=== PATIENT | female | born 1945 | race African-American/Black ===

== ENCOUNTER 2016-07-14 18:29 | Inpatient (IN) | payer MEDICARE ==
--- NOTE | ~2016-07-14 | CN ---
Consultation Report [facility] [address] [place]. [address] NAME: YURIDIA HANLEY : 49 STATUS : ADM IN [facility]#: [id number] AGE: 71 ADM/REG DATE : 07/15/16 MR#: [id number] REPORT SERV DATE: 07/18/16 DICTATED BY: LB FERMIN DATE: 07/15/16 REPORT STATUS : Draft TRANSCRIBED BY: BRENT DATE: 07/15/16 DATE OF CONSULTATION: 07/15/2016 REASON FOR CONSULTATION: Preoperative cardiac clearance, lateral T-wave inversions on EKG. HISTORY OF PRESENT ILLNESS: Ms. Hanley is a very pleasant 71-year-old female with a history of stroke/vascular dementia, coronary artery disease, status post four-vessel CABG in 2011 at [place], peripheral vascular disease, status post multiple interventions, and uncontrolled diabetes, who presents to [facility] with severe compression of her cervical cord that is unstable. She is currently awaiting posterior cord decompression per Orthopedic Surgery. However, her EKG from this morning demonstrated lateral T-wave inversions, prompting consultation for evaluation and preoperative cardiac clearance. In speaking with her, as well as her sister, the patient is completely asymptomatic from a cardiac standpoint. She has not had any chest pains, pressures, or palpitations in the recent past or presently. Although she is fairly limited in her ability to complete her ADLs (being in a wheelchair, as well as having bilateral carpal tunnel syndrome), she is able to wheel herself around without any issue in her wheelchair. She wheels herself around regularly and does not have any cardiac symptoms at this time either. ALLERGIES: NONE. PAST MEDICAL HISTORY: As above. SOCIAL HISTORY: The patient lives at home with her son. She functions in a partially dependent fashion. She gets around with a wheelchair. She denies drinking alcohol or doing drugs. She does smoke occasionally. FAMILY HISTORY: Noncontributory for premature cardiac disease. REVIEW OF SYSTEMS: As above, including neck pain. All other systems otherwise negative. PHYSICAL EXAMINATION: VITAL SIGNS: Blood pressure 131/73, pulse 86, temperature 98.2. GENERAL: Cachectic, older than stated age, mild distress, and discomfort from neck pain. NEURO: Awake, alert and oriented x3; no focal deficits, appropriate mood. HEAD AND NECK: Normocephalic atraumatic, C-spine stabilizer in place. LUNGS: Clear to auscultation bilaterally, no wheezes, rales or rhonchi. CV: Regular rhythm, normal S1/S2, no murmurs, rubs or gallops. ABDOMEN: Soft, non-tender, non-distended, no rebound or guarding. EXTREMITIES: Decreased muscle bulk in her lower extremities bilaterally with fungal nail infection noted on her feet bilaterally; otherwise, cool to touch. SKIN: Warm, dry and intact; no rash. PERTINENT TEST FINDINGS: Potassium 4.7; creatinine 1.17; glucose 359. White blood cell Consultation Report [facility] [address] [place]. [address] NAME: YURIDIA HANLEY : 49 STATUS : ADM IN PAT#: [id number] AGE: 71 ADM/REG DATE : 07/15/16 MR#: [id number] REPORT SERV DATE: 07/18/16 DICTATED BY: LB FERMIN DATE: 07/15/16 REPORT STATUS : Draft TRANSCRIBED BY: BRENT DATE: 07/15/16 count 8.6. Troponin less than 0.02. EKGs demonstrate sinus rhythm, normal mean QRS axis, septal Q-waves, lateral T-wave inversions in V4 through V6, stable T-wave inversion in aVL when compared to previous EKG. Most recent EKG shows resolution of T-wave inversions in V4 through V6. IMPRESSION AND PLAN: Ms. Hanley is a 71-year-old female with multiple comorbidities and an extensive cardiovascular history, who is awaiting decompression of a severe and unstable compression of her C-spine cord. We were called for evaluation of lateral T-wave inversions on her EKG that were transient from this morning, as well as preoperative cardiac clearance. In light of the fact that she is entirely asymptomatic from a cardiac standpoint, is able to wheel herself around in her wheelchair (greater than 4 METs), and does not have any decompensated cardiac conditions as far as I am able to discern at this point in time, I do not believe she warrants additional cardiovascular testing at this time. Furthermore, given severe and unstable status of her C-spine/cervical cord, I do not think that we should delay surgical therapy for cardiovascular testing at this time. She is [id number] risk for an intermediate risk surgery with an estimated risk of 2-3% of a perioperative myocardial infarction or cardiac arrest. I have disclosed this to her, and she is amenable with proceeding without further cardiovascular testing. Nevertheless, I do recommend starting a beta-debbie per AHA guidelines (class IIA recommendation). It will be helpful to get an echocardiogram as well, however, again, I do not believe this should hold her up for an operative intervention to decompress her cervical cord. I have conveyed these recommendations directly to Dr. Boykin's physician healthcare administrative assistant at the time of this consultation. ALAINA/BRENT Lb Fermin MD / [id number] CC: Netta Marr M.D.
--- NOTE | ~2016-07-14 | OP ---
Record Of Operation [facility] [address] [place]. 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 PROCEDURE: 1. Posterior cervical laminectomy C2-3, C3-4, C4-5, and C5-6. 2. Posterior cervical arthrodesis C2-3, C3-4, C4-5, and C5-6. 3. Posterior instrumentation C2-C6 (five segments). 4. Use of local autograft, allograft substitute, and bone morphogenic protein. 5. Use of this stereotactic guidance. SURGEON: Riddhi Boykin M.D. FLUIDS: 1600 mL LR. ESTIMATED BLOOD LOSS: 75 mL. DRAIN: One. COMPLICATIONS: None. ANTIBIOTIC: Preoperatively. IMPLANT: Alphatec. PREOPERATIVE HISTORY: This is a very friendly, 71-year-old female, who has a very good support system including family who reports increasing weakness in her upper extremities. She was having greater and greater difficulty feeding herself and was having severe difficulties with dexterity as well as upper extremity proprioception. We discussed the pros and cons of essentially observation and doing nothing. We discussed the natural history of cervical spondylotic myelopathy. We also then discussed the surgical option. She did have some anterior and posterior compression, but overall felt that a posterior laminectomy and the fact that she still did have some reasonable lordosis present that the posterior only procedure should be sufficient. I felt that if she had been severely kyphotic, then we would have also performed a corpectomy and posterior surgery. In an effort to avoid a combined approach, I felt again the posterior surgery alone should be sufficient. I discussed with the family and with her diabetes of course that she would be an increased risk of infection. Fortunately, she had done well with several other surgeries that she had in the last year. Again, we discussed this and she also obtained clearance from a soap tender. The patient and the family overall were in agreement and they wished to have something done in hopes that it would improve her quality of life and her upper Record Of Operation [facility] [address] [place]. [address] NAME: YURIDIA HANLEY : 49 STATUS : ADM IN PAT#: [id number] AGE: 71 ADM/REG DATE : 07/15/16 MR#: [id number] REPORT SERV DATE: 07/17/16 DICTATED BY: RIDDHI BOYKIN II DATE: 07/17/16 REPORT STATUS : Draft TRANSCRIBED BY: MODChandrakant DATE: 07/17/16 extremity weakness. DESCRIPTION OF PROCEDURE: After informed consent was obtained, Ms Hanley was brought to the operating room at her request and general anesthesia achieved. She was placed in the prone position with the [employer] tongs in place. The posterior cervical region was prepped and draped in a sterile fashion. The midline incision was made and subperiosteal exposure was completed from C2-C6. The area did appear to be hypermobile from the degenerative process. The deep retractors were placed and the facet capsules were removed. The intraoperative CT scan was now completed and stereotactic guidance used throughout the case. Next, we then drilled the lateral mass screws for C3-C6 and also the pars trajectories in the C2 bilaterally. Next, the laminectomy was performed in the severe spinal cord compression alleviated at these multiple levels. We also then performed foraminotomies in particular at C3-4 and C4- 5. We then placed the instrumentation from C2-C6 and a repeat CT scan confirmed acceptable placement of the implants. The rods were then contoured and put into position and final tightening performed. Following irrigation, we then decorticated the lateral masses from C3-C6 and also the posterior elements of C2. We then placed the local autograft, allograft substitute, and bone morphogenic protein along these decorticated surfaces. A deep drain was placed followed by standard closure and the patient was then extubated and transferred to PACU in stable condition. The plan will be for mobilization with physical therapy and will have Case Management work on appropriate placement following the hospitalization. PAULA/BRENT Riddhi Boykin II, M.D. / [id number] CC: Netta Marr M.D.
--- NOTE | ~2016-07-14 | DS ---
Discharge Summary [facility] [address] [place]. [address] NAME: YURIDIA MILAN : 49 STATUS : DIS IN PAT#: [id number] AGE: 71 ADM/REG DATE : 07/15/16 MR#: [id number] REPORT SERV DATE: 08/03/16 DICTATED BY: NETTA MARR DATE: 08/02/16 REPORT STATUS : Draft TRANSCRIBED BY: BRENT DATE: 08/02/16 Data Collection from hospitalization DISCHARGE DIAGNOSES: 1. Severe cervical spine myelopathy. 2. Multilevel severe cord compression. 3. Type 2 diabetes mellitus. 4. Hypertension. 5. Coronary artery disease. 6. Peripheral vascular disease. 7. New urinary retention with Oliveros. 8. Healing stage IV pressure ulcer of the left heel. 9. History of cerebrovascular disease with stroke. 10.Peripheral vascular disease. 11.Diabetic neuropathy. 12.Tobacco use. CONSULTATIONS: 1. Lb De La Vega M.D. 2. Corby Boykin M.D. PROCEDURES PERFORMED: Posterior cervical laminectomy C2-3, C3-4, C4-5, and C5-6. Posterior cervical arthrodesis C2-3, C3-4, C4-5, and C5-6. Posterior instrumentation C2-C6 (5 segments). Use of local autograft and allograft substitute and bone morphogenic protein. Use of stereotactic guidance, 07/17/2016. PATHOLOGY: Bone and soft tissue, cervical spine-fragments of bone and fibrocartilage. No significant pathologic abnormality. No infection or neoplasm. DISCHARGE MEDICATIONS: Norvasc 10 mg daily, vitamin C 500 mg daily, Lipitor 40 mg daily, Lotensin 20 mg daily, Plavix 75 mg daily, Caltrate plus D 600 mg with breakfast, Colace 100 mg twice a day, Zantac 150 mg at bedtime, Nu-Iron 150 mg with breakfast, NovoLog injection insulin as instructed, Tapazole 5 mg twice a day, Lopressor 25 mg every 12 hours, Habitrol 14 mg topically daily, Protonix 40 mg before breakfast, Senokot two tablets at bedtime, Silvadene cream apply to the left heel topically daily, Levemir 12 units subcutaneously at bedtime, Tylenol 650 mg every four hours as needed, Dulcolax 10 mg per rectum as needed, [place] 5/325 one tablet every four hours as needed, Robaxin 750 mg every eight hours as needed, Zofran 4 mg every eight hours as needed, Ultram 50 mg every six hours as needed, vitamin D 50,000 units every 30 days, aspirin 81 mg daily, gabapentin 600 mg at bedtime as instructed. CONDITION AT DISCHARGE: Stable. DISPOSITION: The patient was discharged to [facility] on a regular diabetic diet with activities as instructed. HOSPITAL COURSE: This is a 71-year-old female who had joined the [facility] program in March of this year. At her baseline, she is in a wheelchair and has a brace on the left lower Discharge [place] [id number] [place]. [address] NAME: YURIDIA MILAN : 49 STATUS : DIS IN PAT#: [id number] AGE: 71 ADM/REG DATE : 07/15/16 MR#: [id number] REPORT SERV DATE: 08/03/16 DICTATED BY: NETTA MARR DATE: 08/02/16 REPORT STATUS : Draft TRANSCRIBED BY: BRENT DATE: 08/02/16 extremity for footdrop. She had lumbar spine surgery last year. She complained about worsening pain and numbness in her hands with decreased ability to do her activities of daily living a few weeks prior to admission. EMG done recently showed severe bilateral carpal tunnel syndrome and peripheral neuropathy. There was also a concern about cortical dysfunction. An MRI of the brain and cervical spinal cord showed large herniation from C3- C7 most severely at the C3-C4 level, but throughout the entirety. This was considered unstable situation and could progress to complete cord transection. She was admitted to the hospital at this time for further evaluation and treatment. Upon admission, creatinine level was 1.17. The MRI of the brain had shown large bilateral MCA territory infarct, extensive moderate to marked atrophy, all chronic, associated with extensive amount of cortical loss. Chest x-ray showed no cardiopulmonary process. EKG showed sinus rhythm at 90 beats per minute and new left atrial enlargement. She had inverted T-waves in aVL and V5 and V6 and these lateral changes were new since her last EKG done in the office in March of 2016. Initial troponin was negative. She has uncontrolled diabetes with diffuse vascular disease. Despite her extensive smoking history, there was no recent history of respiratory problem. It was felt that she would need an echocardiogram to assess left ventricular function. Troponin would be rechecked. We were going to add low- dose beta-debbie. The patient is on aspirin and Plavix. Her dual antiplatelets would be continued until she was seen by Cardiology. Lipitor and LAURIE inhibitor were going to be continued level 3 NovoLog sliding scale insulin was continued. We were going to check TSH and continue her methimazole. Amlodipine and benazepril were continued, as well as Zantac and proton pump inhibitor. Iron was continued and she has a history of anemia with a low ferritin. NicoDerm was continued. She has an ulcer on the left heel. It had healed well. She was seen in evaluation by Dr. Lb De La Vega, for preoperative cardiac clearance. With regard to the lateral T-wave inversions on EKG, the patient has an extensive cardiovascular history. He had been asked to see the patient for evaluation of lateral T-wave inversions on her EKG that were transient that morning, as well as preoperative cardiac clearance. In light of the fact that she was entirely asymptomatic from a cardiac standpoint and was able to wheel herself around in the wheelchair and did not have any decompensated cardiac condition at this time, we did not believe she warranted additional cardiovascular testing at this time. Furthermore, given the severe and unstable status of her cervical spine/cervical cord, he did not think we should delay surgical therapy for cardiovascular testing at this time. She was felt to be intermediate to high risk for an intermediate risk surgery. She was amenable with proceeding without further cardiovascular testing. Beta- debbie was going to be started. Echocardiogram would also be performed. She was also seen by Dr. Corby Boykin. The patient denied any neck pain or radicular symptoms at this time. However, she had some falls recently. Kaushik sign was positive bilaterally. The patient has cervical stenosis with severe cord compression. Treatment options were discussed and it was elected to proceed with surgical intervention. The following day, the patient had received Dilaudid and was still alert and interactive even after taking the Dilaudid. Blood sugars were elevated. Blood pressure was under fair control. A cervical collar was in place. On 07/17/2016, the patient was taken to the operating room where she underwent the above-mentioned procedure. She tolerated this well. There were no complications. She had fair blood pressure control. On postop day #1, she was stable. ALICIA drain was in place. We encouraged her to mobilize. She had no edema. She had no shortness of breath, chest pain, or dizziness. Sliding scale insulin continued. Echocardiogram had been performed. Discharge Summary [place] [address] [place]. [address] NAME: YURIDIA MILAN : 49 STATUS : DIS IN PAT#: [id number] AGE: 71 ADM/REG DATE : 07/15/16 MR#: [id number] REPORT SERV DATE: 08/03/16 DICTATED BY: NETTA MARR DATE: 08/02/16 REPORT STATUS : Draft TRANSCRIBED BY: MODL DATE: 08/02/16 On 07/19/2016, the patient had a fever during the night. She had received a dose of vancomycin. Cultures were obtained. She did complain of neck pain. White count was 14.6. On 07/20/2016, she remained stable. We encouraged her to mobilize. She still complained of discomfort in the neck. She did have a bowel movement. She had no further fever. White count was 14.5. Levemir was increased. Over the next couple of days, she continued to do well. Discharge planning was performed. ALICIA drain was going to be removed. She has a fluid filled left shoulder blister. Leukocytosis had resolved. On 07/22/2016, she had no chest pain or shortness of breath. Her lungs were clear. Oliveros catheter remained in place. Discharge instructions were given. Due to her improved and stable condition, she was discharged to [facility] with the above-stated instructions. Information collected by: Kayla Muhammad I submit the above information as my discharge summary. TG/MODChandrakant Netta Marr M.D. / [id number] CC: Karley Rodríguez MD [facility]
--- NOTE | ~2016-07-14 | HP ---
History And Physical [id number] [place]. [address] NAME: MER HANLEY : 49 STATUS : ADM IN [facility]#: [id number] AGE: 71 ADM/REG DATE : 07/15/16 MR#: [id number] REPORT SERV DATE: 07/15/16 DICTATED BY: NETTA MARR DATE: 07/15/16 REPORT STATUS : Draft TRANSCRIBED BY: MODChandrakant DATE: 07/15/16 DATE OF ADMISSION: 07/15/2016 CHIEF COMPLAINT: Progressive weakness and pain in hands due to severe compression of the cervical spinal cord. HISTORY OF PRESENT ILLNESS: Ms. Mer Hanley is a 71-year-old female who joined our [facility] program in March of this year. The patient at baseline was in a wheelchair and had a brace on her left lower extremity for footdrop and she also is noted to have had lumbar spine surgery last year. The patient complained about worsening pain and numbness in her hands with decreased ability to do her ADLs a few weeks ago. The EMG done recently showed bilateral severe carpal tunnel syndrome and peripheral neuropathy, but there was also a concern about cortical dysfunction. She had an MRI of the brain and cervical spinal cord that showed large herniations from C3 to C6/7 causing marked compression of multiple levels. The cord was severely atrophied and attenuated, most severely at the C3-C4 level, but throughout the entirety and this was considered unstable situation and could progress to complete cord transection. So, the patient was immediately admitted to the hospital and Spinal Surgery was consulted. ALLERGIES: INCLUDE MORPHINE. PRESENT MEDICATIONS: Include gabapentin 600 mg twice daily, Calcarb 600-400 twice daily, Muscle Rub three times a day as needed, senna two tabs at bedtime, tramadol 50 mg every six hours as needed, Zantac 150 mg at bedtime, Zofran 4 mg as needed, methimazole 5 mg twice daily. She was on a Nicoderm patch, vitamin C 500 twice daily, Tylenol 650 three times a day, omeprazole 20 mg daily, methocarbamol 750 mg q.8 hours, Humalog 10 units three times a day, iron 200 mg daily, Plavix 75 mg daily, atorvastatin 40 mg daily, aspirin 81 mg daily, and amlodipine/benazepril 10/20 one tablet daily. PAST MEDICAL HISTORY: Significant for type 2 diabetes, poorly controlled with diabetic neuropathy, vascular dementia with [id number] cognitive impairment. She has a history of cerebrovascular disease with strokes, coronary artery disease, status post CABG, peripheral vascular disease with stenting of right bilateral common iliac and left external iliac; she has also had a right carotid endarterectomy, hypertension, and history of lumbar stenosis with decompression of L4-S1 and if I recall correctly, that was done last year. She also has a history of hyperthyroidism, falls, and weight loss. SOCIAL HISTORY: Significant for being a recent smoker, she tells me she quit after starting the Nicoderm patch, I am not sure about this, but she was smoking about two packs a day for over 20 years, but with her recent stenting of her lower extremities, she has cut down to at least one pack a day of cigarettes. Her son lives with her and is her primary caregiver, and she is a full code. FAMILY HISTORY: Significant for hypertension, hyperlipidemia, and type 2 diabetes. REVIEW OF SYSTEMS: History And Physical [address] [address] NAME: MER HANLEY : 49 STATUS : ADM IN PAT#: [id number] AGE: 71 ADM/REG DATE : 07/15/16 MR#: [id number] REPORT SERV DATE: 07/15/16 DICTATED BY: NETTA MARR DATE: 07/15/16 REPORT STATUS : Draft TRANSCRIBED BY: BRENT DATE: 07/15/16 No chest pain, shortness of breath, dizziness. No nausea. She has been moving her bowels and urinating. PHYSICAL EXAMINATION: VITAL SIGNS: Temp is 98.2, blood pressure is 131/73, pulse is 86, respiratory rate is 16, O2 saturation is 96% on air. GENERAL: She is a thick, chronically ill-appearing woman, in no apparent distress. HEENT: Normocephalic, atraumatic. Conjunctivae not injected. No scleral icterus. Natural teeth in place. Does wear dentures. Neck is in a brace. CARDIAC: Regular rate and rhythm. No murmurs. LUNGS: Clear to auscultation. ABDOMEN: Positive bowel sounds. Soft, nondistended, nontender. She does have an abdominal scar. EXTREMITIES: She has trace bilateral edema. NEURO: She is alert, fluent, following directions. She has 3/5 strength in both hands with decreased sensation. She has 4-/5 strength in her right arm and 4/5 strength in her left arm. She has 4/5 strength in her left lower extremity, 4/5 in her right lower extremity with the footdrop. SKIN: She has a small ulcer on her left heel that is about 0.5 cm by about 0.3 cm that is granulating in the center. No associated erythema. No associated increased warmth. LABORATORY EVALUATION: White count was 8.6, hemoglobin was 10.9, hematocrit 33.4, and platelets 251. PT and PTT normal. Chemistry: Sodium 138, potassium 4.7, chloride 105, bicarb 27, BUN 29, creatinine 1.17, glucose 359. MRI of brain showed large bilateral MCA territory infarcts, extensive qryegxrz-[id number] atrophy, all chronic associated with extensive amount of cortical loss. MRI cervical spine, mentioned above. Chest x-ray, no acute cardiopulmonary process. EKG shows sinus rhythm at 90 beats per minute, left atrial enlargement. She has inverted T-waves in aVL, V5, and V6 and these lateral changes are new since her EKG done in the office on 04/08/2016. IMPRESSION AND PLAN: 1. Severe cervical spine herniation with cord compression, considered unstable. Spinal Surgery has been consulted. Unfortunately, she has new changes in her EKG with negative initial troponin, but the patient has uncontrolled diabetes with diffuse vascular disease and is definitely at risk for having progressing coronary artery disease. Despite her extensive smoking history, there is no recent history of any respiratory problem. She will need an echocardiogram to assess her left ventricular function. Cardiology consult to help with management if she does have progressive coronary artery disease with a history of coronary artery bypass graft. We will recheck her troponin and considering her heart rate is a little high and her blood pressure can tolerate it, I will add a low dose of a beta-debbie. 2. Coronary artery disease, peripheral vascular disease. Patient on aspirin and Plavix. I would continue her dual antiplatelets until she is seen by Cardiology. I did speak with Neurosurgery and she could have her surgery on aspirin, but we would discontinue her Plavix for the surgery. We will continue her Lipitor and LAURIE inhibitor. 3. Type 2 diabetes, uncontrolled. We will continue her level 3 NovoLog sliding scale. History And Physical [address] [facility] [place]. [address] NAME: MER HANLEY : 49 STATUS : ADM IN [facility]#: [id number] AGE: 71 ADM/REG DATE : 07/15/16 MR#: [id number] REPORT SERV DATE: 07/15/16 DICTATED BY: NETTA MARR DATE: 07/15/16 REPORT STATUS : Draft TRANSCRIBED BY: BRENT DATE: 07/15/16 4. Hyperthyroidism. We will check her TSH and continue her methimazole. 5. Hypertension. Continue amlodipine and benazepril. 6. Gastroesophageal reflux disease. Continue Zantac and her PPI. 7. Patient has a history of anemia with a low ferritin. We will continue her iron. 8. For her tobacco disorder, continue Nicoderm. 9. She does have an ulcer on her left heel that she came to our program with. It has healed well. She is followed by [facility]. We are presently applying Koibanx Ag on it daily. 10.Patient has chronic kidney disease, stage III. She is close to her baseline of BUN 21 and creatinine 1.13 and hopefully with the fluids, it should return to its baseline. We will check a BMP in the morning. 11.The patient is a full code. LISA/BRENT Netta Marr M.D. / [id number] CC: Netta Marr M.D.
[2016-07-14 18:50] LABS: BASOPHILS 0.2 %; BASOPHILS ABSOLUTE 0.02 10/3/uL (0.0-0.16); EOSINOPHILS 0.8 %; EOSINOPHILS ABSOLUTE 0.07 10/3/uL (0.0-0.53); ER CBC TAT 0 Hrs 10 Mins; HEMOGLOBIN 10.9 g/dL (12.0-16.0); IMMATURE GRANULOCYTES 0.1 %; IMMATURE GRANULOCYTES ABSOLUTE 0.01 10/3/uL (0.0-0.11); LYMPHOCYTES 36.6 %; LYMPHOCYTES ABSOLUTE 3.16 10/3/uL (0.67-4.30); MEAN CORPUS HGB CONC 32.6 g/dL (32.0-36.0); MEAN CORPUSCULAR VOLUME 88.8 fL (80-100); MONOCYTES 9.4 %; MONOCYTES ABSOLUTE 0.81 10/3/uL (0.21-1.20); NEUTROPHILS 52.9 %; NEUTROPHILS ABSOLUTE 4.57 10/3/uL (2.02-8.40); PLATELET COUNT 251 10/3/uL (150-400); RBC DISTRIBUTION WIDTH 14.9 % (12.0-16.0); RED CELL COUNT 3.76 10/6/uL (4.0-5.6); WHITE BLOOD CELLS 8.6 10/3/uL (4.5-10.5)
[2016-07-14 18:51] LABS: HEMATOCRIT 33.4 % (36.0-48.0); MANUAL DIFF NO %
[2016-07-14 18:54] LABS: PROTIME (NOT ORD) 13.4 SEC (12.0-14.5)
[2016-07-14 19:02] LABS: ALBUMIN 3.4 G/DL (3.5-5.0); ALKALINE PHOSPHATASE 174 U/L (45-117); BUN (BLOOD UREA NITROGEN) 29 MG/DL (6-23); CALCIUM, SERUM 10.2 MG/DL (8.5-10.4); CHEST PAIN PROFILE TAT 0 Hrs 22 Mins; CHLORIDE, SERUM 105 MMOL/L (96-112); CO2 (CARBON DIOXIDE) 27 MMOL/L (24-34); CREATININE 1.17 MG/DL (0.55-1.02); DIRECT BILIRUBIN < 0.1 MG/DL (0.0-0.4); GFR AFRICAN AMERICAN 55 ML/MIN (>=60); GFR NON AFRICAN AMERICAN 48 ML/MIN (>=60); GLUCOSE, SERUM 359 MG/DL (60-99); INDIRECT BILIRUBIN(NOT ORDER) 0.1 MG/DL (0.1-0.9); POTASSIUM, SERUM 4.7 MMOL/L (3.5-5.3); SGOT(AST) 16 U/L (5-40); SGPT(ALT) 31 U/L (5-65); SODIUM, SERUM 138 MMOL/L (135-148); TOTAL BILIRUBIN 0.2 MG/DL (0-1.2); TOTAL PROTEIN 7.7 G/DL (6.0-8.5); TROPONIN I <0.02 NG/ML (<0.05)
[2016-07-14] MEDS ORDERED: NEUR600 PO (19:23)
[2016-07-14] MEDS ORDERED: CALTRA600D PO (19:24)
[2016-07-14] MEDS ORDERED: SENTAB PO (19:24)
[2016-07-14] MEDS ORDERED: ZANTAC150 MG PO (19:25)
[2016-07-14] MEDS ORDERED: ZOFRAN4 PO (19:26)
[2016-07-14] MEDS ORDERED: MYLANTA PO (19:27)
[2016-07-14] MEDS ORDERED: VITD PO (19:29)
[2016-07-14] MEDS ORDERED: TAPAZOLE5 MG PO (19:29)
[2016-07-14] MEDS ORDERED: VITC500 PO (19:30)
[2016-07-14] MEDS ORDERED: PRILO PO (19:30)
[2016-07-14] MEDS ORDERED: METHOC750B PO (19:31)
[2016-07-14] MEDS ORDERED: ULTRAM50 PO (19:32)
[2016-07-14] MEDS ORDERED: EZFE 200200 MG PO (19:32)
[2016-07-14] MEDS ORDERED: HUMALOG SC (19:32)
[2016-07-14] MEDS ORDERED: HALF81 PO (19:33)
[2016-07-14] MEDS ORDERED: LIPITOR40 PO (19:33)
[2016-07-14] MEDS ORDERED: PLAVIX PO (19:33)
[2016-07-14] MEDS ORDERED: LOTREL1 CA4 PO (19:34)
[2016-07-16 05:13] LABS: BASOPHILS 0.3 %; BASOPHILS ABSOLUTE 0.03 10/3/uL (0.0-0.16); EOSINOPHILS 1.3 %; EOSINOPHILS ABSOLUTE 0.13 10/3/uL (0.0-0.53); HEMOGLOBIN 11.2 g/dL (12.0-16.0); IMMATURE GRANULOCYTES 0.1 %; IMMATURE GRANULOCYTES ABSOLUTE 0.01 10/3/uL (0.0-0.11); LYMPHOCYTES 27.1 %; LYMPHOCYTES ABSOLUTE 2.74 10/3/uL (0.67-4.30); MEAN CORPUS HGB CONC 32.9 g/dL (32.0-36.0); MEAN CORPUSCULAR HEMOGLOB 29.6 pg (26.0-34.0); MEAN CORPUSCULAR VOLUME 89.7 fL (80-100); MEAN PLATELET VOLUME 9.8 fL (9.2-13.0); MONOCYTES 8.6 %; MONOCYTES ABSOLUTE 0.87 10/3/uL (0.21-1.20); NEUTROPHILS 62.6 %; NEUTROPHILS ABSOLUTE 6.32 10/3/uL (2.02-8.40); PLATELET COUNT 242 10/3/uL (150-400); RBC DISTRIBUTION WIDTH 14.7 % (12.0-16.0); RED CELL COUNT 3.79 10/6/uL (4.0-5.6); WHITE BLOOD CELLS 10.1 10/3/uL (4.5-10.5)
[2016-07-16 05:14] LABS: MANUAL DIFF NO %
[2016-07-16 05:31] LABS: CALCIUM, SERUM 10.1 MG/DL (8.5-10.4); CHLORIDE, SERUM 104 MMOL/L (96-112); CO2 (CARBON DIOXIDE) 29 MMOL/L (24-34); CREATININE 1.13 MG/DL (0.55-1.02); GFR AFRICAN AMERICAN 57 ML/MIN (>=60); GFR NON AFRICAN AMERICAN 50 ML/MIN (>=60); POTASSIUM, SERUM 4.6 MMOL/L (3.5-5.3); SODIUM, SERUM 138 MMOL/L (135-148)
[2016-07-16 05:33] LABS: BUN (BLOOD UREA NITROGEN) 24 MG/DL (6-23); GLUCOSE, SERUM 248 MG/DL (60-99)
[2016-07-18 08:24] LABS: BASOPHILS 0.1 %; BASOPHILS ABSOLUTE 0.01 10/3/uL (0.0-0.16); EOSINOPHILS 0.1 %; EOSINOPHILS ABSOLUTE 0.02 10/3/uL (0.0-0.53); HEMATOCRIT 34.5 % (36.0-48.0); HEMOGLOBIN 11.6 g/dL (12.0-16.0); IMMATURE GRANULOCYTES 0.3 %; IMMATURE GRANULOCYTES ABSOLUTE 0.04 10/3/uL (0.0-0.11); LYMPHOCYTES ABSOLUTE 1.63 10/3/uL (0.67-4.30); MANUAL DIFF NO %; MEAN CORPUS HGB CONC 33.6 g/dL (32.0-36.0); MEAN CORPUSCULAR HEMOGLOB 29.7 pg (26.0-34.0); MEAN CORPUSCULAR VOLUME 88.5 fL (80-100); MEAN PLATELET VOLUME 9.8 fL (9.2-13.0); MONOCYTES 8.2 %; MONOCYTES ABSOLUTE 1.12 10/3/uL (0.21-1.20); NEUTROPHILS 79.3 %; NEUTROPHILS ABSOLUTE 10.81 10/3/uL (2.02-8.40); PLATELET COUNT 228 10/3/uL (150-400); RBC DISTRIBUTION WIDTH 14.4 % (12.0-16.0); WHITE BLOOD CELLS 13.6 10/3/uL (4.5-10.5)
[2016-07-18 08:37] LABS: BUN (BLOOD UREA NITROGEN) 19 MG/DL (6-23); CALCIUM, SERUM 9.6 MG/DL (8.5-10.4); CHLORIDE, SERUM 99 MMOL/L (96-112); CO2 (CARBON DIOXIDE) 26 MMOL/L (24-34); CREATININE 1.08 MG/DL (0.55-1.02); GFR AFRICAN AMERICAN 61 ML/MIN (>=60); GFR NON AFRICAN AMERICAN 52 ML/MIN (>=60); GLUCOSE, SERUM 235 MG/DL (60-99); SODIUM, SERUM 133 MMOL/L (135-148)
[2016-07-19 05:18] LABS: BASOPHILS 0.1 %; BASOPHILS ABSOLUTE 0.02 10/3/uL (0.0-0.16); EOSINOPHILS 0.1 %; EOSINOPHILS ABSOLUTE 0.01 10/3/uL (0.0-0.53); HEMATOCRIT 33.4 % (36.0-48.0); IMMATURE GRANULOCYTES 0.3 %; IMMATURE GRANULOCYTES ABSOLUTE 0.04 10/3/uL (0.0-0.11); LYMPHOCYTES 18.9 %; LYMPHOCYTES ABSOLUTE 2.65 10/3/uL (0.67-4.30); MEAN CORPUS HGB CONC 32.9 g/dL (32.0-36.0); MEAN CORPUSCULAR VOLUME 88.1 fL (80-100); MEAN PLATELET VOLUME 9.8 fL (9.2-13.0); MONOCYTES 12.6 %; MONOCYTES ABSOLUTE 1.76 10/3/uL (0.21-1.20); NEUTROPHILS ABSOLUTE 9.52 10/3/uL (2.02-8.40); PLATELET COUNT 236 10/3/uL (150-400); RBC DISTRIBUTION WIDTH 14.8 % (12.0-16.0); RED CELL COUNT 3.79 10/6/uL (4.0-5.6)
[2016-07-19 05:21] LABS: MANUAL DIFF NO %
[2016-07-19 05:29] LABS: BUN (BLOOD UREA NITROGEN) 16 MG/DL (6-23); CALCIUM, SERUM 9.6 MG/DL (8.5-10.4); CHLORIDE, SERUM 103 MMOL/L (96-112); CO2 (CARBON DIOXIDE) 29 MMOL/L (24-34); CREATININE 1.03 MG/DL (0.55-1.02); GFR AFRICAN AMERICAN 64 ML/MIN (>=60); GFR NON AFRICAN AMERICAN 55 ML/MIN (>=60); GLUCOSE, SERUM 192 MG/DL (60-99)
[2016-07-19 05:30] LABS: SODIUM, SERUM 140 MMOL/L (135-148)
[2016-07-20 05:02] LABS: BASOPHILS 0.1 %; BASOPHILS ABSOLUTE 0.02 10/3/uL (0.0-0.16); EOSINOPHILS 0.3 %; EOSINOPHILS ABSOLUTE 0.05 10/3/uL (0.0-0.53); HEMATOCRIT 32.6 % (36.0-48.0); HEMOGLOBIN 10.7 g/dL (12.0-16.0); IMMATURE GRANULOCYTES 0.3 %; IMMATURE GRANULOCYTES ABSOLUTE 0.04 10/3/uL (0.0-0.11); LYMPHOCYTES 19.7 %; LYMPHOCYTES ABSOLUTE 2.86 10/3/uL (0.67-4.30); MEAN CORPUS HGB CONC 32.8 g/dL (32.0-36.0); MEAN CORPUSCULAR HEMOGLOB 29.3 pg (26.0-34.0); MEAN CORPUSCULAR VOLUME 89.3 fL (80-100); MEAN PLATELET VOLUME 9.8 fL (9.2-13.0); MONOCYTES 10.6 %; MONOCYTES ABSOLUTE 1.54 10/3/uL (0.21-1.20); NEUTROPHILS ABSOLUTE 10.01 10/3/uL (2.02-8.40); PLATELET COUNT 233 10/3/uL (150-400); RBC DISTRIBUTION WIDTH 14.8 % (12.0-16.0); RED CELL COUNT 3.65 10/6/uL (4.0-5.6); WHITE BLOOD CELLS 14.5 10/3/uL (4.5-10.5)
[2016-07-20 05:05] LABS: MANUAL DIFF NO %
[2016-07-20 05:15] LABS: CALCIUM, SERUM 10.2 MG/DL (8.5-10.4); CHLORIDE, SERUM 101 MMOL/L (96-112); CO2 (CARBON DIOXIDE) 27 MMOL/L (24-34); GFR AFRICAN AMERICAN 67 ML/MIN (>=60); GFR NON AFRICAN AMERICAN 57 ML/MIN (>=60); GLUCOSE, SERUM 186 MG/DL (60-99); POTASSIUM, SERUM 4.8 MMOL/L (3.5-5.3); SODIUM, SERUM 136 MMOL/L (135-148)
[2016-07-20 05:16] LABS: BUN (BLOOD UREA NITROGEN) 23 MG/DL (6-23)
[2016-07-20 11:53] LABS: ASCORBIC ACID (UR NOT ORDER) NEG (NEG); BILIRUBIN, URINE NEGATIVE (NEG); KETONE, URINE NEGATIVE (NEG); LEUKOCYTE ESTERASE(NOT OR SMALL (NEG); WBC (NOT ORDERED) (RFLEX) 7 (0-5)
[2016-07-21 06:27] LABS: BASOPHILS 0.2 %; BASOPHILS ABSOLUTE 0.02 10/3/uL (0.0-0.16); EOSINOPHILS 1.3 %; EOSINOPHILS ABSOLUTE 0.13 10/3/uL (0.0-0.53); HEMOGLOBIN 9.5 g/dL (12.0-16.0); IMMATURE GRANULOCYTES 0.3 %; IMMATURE GRANULOCYTES ABSOLUTE 0.03 10/3/uL (0.0-0.11); LYMPHOCYTES ABSOLUTE 3.01 10/3/uL (0.67-4.30); MEAN CORPUS HGB CONC 33.7 g/dL (32.0-36.0); MEAN CORPUSCULAR HEMOGLOB 29.5 pg (26.0-34.0); MEAN CORPUSCULAR VOLUME 87.6 fL (80-100); MEAN PLATELET VOLUME 9.6 fL (9.2-13.0); MONOCYTES 10.9 %; MONOCYTES ABSOLUTE 1.09 10/3/uL (0.21-1.20); NEUTROPHILS 57.3 %; NEUTROPHILS ABSOLUTE 5.74 10/3/uL (2.02-8.40); PLATELET COUNT 211 10/3/uL (150-400); RBC DISTRIBUTION WIDTH 14.6 % (12.0-16.0); RED CELL COUNT 3.22 10/6/uL (4.0-5.6)
[2016-07-21 06:28] LABS: HEMATOCRIT 28.2 % (36.0-48.0); MANUAL DIFF NO %
[2016-07-21 06:41] LABS: BUN (BLOOD UREA NITROGEN) 31 MG/DL (6-23); CHLORIDE, SERUM 103 MMOL/L (96-112); CO2 (CARBON DIOXIDE) 28 MMOL/L (24-34); CREATININE 1.08 MG/DL (0.55-1.02); GFR AFRICAN AMERICAN 61 ML/MIN (>=60); GFR NON AFRICAN AMERICAN 52 ML/MIN (>=60); GLUCOSE, SERUM 164 MG/DL (60-99); POTASSIUM, SERUM 4.5 MMOL/L (3.5-5.3); SODIUM, SERUM 138 MMOL/L (135-148)
[2016-07-22 06:10] LABS: CALCIUM, SERUM 9.9 MG/DL (8.5-10.4); CHLORIDE, SERUM 102 MMOL/L (96-112); CO2 (CARBON DIOXIDE) 29 MMOL/L (24-34); CREATININE 1.11 MG/DL (0.55-1.02); GFR AFRICAN AMERICAN 59 ML/MIN (>=60); GFR NON AFRICAN AMERICAN 51 ML/MIN (>=60); POTASSIUM, SERUM 4.2 MMOL/L (3.5-5.3); SODIUM, SERUM 137 MMOL/L (135-148)
[2016-07-22 06:14] LABS: BUN (BLOOD UREA NITROGEN) 26 MG/DL (6-23); GLUCOSE, SERUM 226 MG/DL (60-99)
== END 2016-07-22 16:33 | DRG 471 ==
LOC: ER 18:29 → 1SO 18:49
PROVIDERS: Internal Medicine Geriatric Medicine; Orthopaedic Surgery; Specialist
PROC: 0RG20Z1 (ICD-10-PCS; principal; 2016-07-17 12:30)
DX: M48.02 Spinal stenosis, cervical region (principal); L89.623 Pressure ulcer of left heel, stage 3; I13.0 Hypertensive heart and chronic kidney disease with heart failure and stage 1 through stage 4 chronic kidney disease, or unspecified chronic kidney disease; I50.32 Chronic diastolic (congestive) heart failure; M47.12 Other spondylosis with myelopathy, cervical region; E11.22 Type 2 diabetes mellitus with diabetic chronic kidney disease; E11.65 Type 2 diabetes mellitus with hyperglycemia; F01.50 Vascular dementia, unspecified severity, without behavioral disturbance, psychotic disturbance, mood disturbance, and anxiety; E11.42 Type 2 diabetes mellitus with diabetic polyneuropathy; E78.5 Hyperlipidemia, unspecified; E05.90 Thyrotoxicosis, unspecified without thyrotoxic crisis or storm; I73.9 Peripheral vascular disease, unspecified; I25.10 Atherosclerotic heart disease of native coronary artery without angina pectoris; R33.9 Retention of urine, unspecified; K21.9 Gastro-esophageal reflux disease without esophagitis; N18.3 Chronic kidney disease, stage 3 (moderate); F17.210 Nicotine dependence, cigarettes, uncomplicated; Z79.4 Long term (current) use of insulin; Z79.02 Long term (current) use of antithrombotics/antiplatelets; Z79.82 Long term (current) use of aspirin; Z79.899 Other long term (current) drug therapy; I25.2 Old myocardial infarction; Z95.1 Presence of aortocoronary bypass graft; Z86.73 Personal history of transient ischemic attack (TIA), and cerebral infarction without residual deficits; Z91.81 History of falling; Z88.5 Allergy status to narcotic agent
CPT/HCPCS: 70551; 71010; 72141; 80048; 80076; 81001; 82962; 83735; 84443; 84484; 85025; 85610; 85730; 87040; 87086; 88304; 88311; 93005; 93306; 97110-GP; 97162-GP; 97166-GO; 97530-GP; 99284; A9270-GY; C1713; C1781; G8978-CL-GP; G8979-CK-GP; J0360; J0690; J1170; J1644; J2250; J2370; J2405; J2710; J3010; J3370; J3480